=== PATIENT | female | born 1980 | race Caucasian/White ===

== ENCOUNTER 2017-06-24 20:15 | Emergency (ER) | payer OTHER ==
[~2017-06-24] VITALS: Ht 170.2 cm; Wt 95.5 kg
[~2017-06-24 20:15] MED LIST: BUPROPION HCL150 M1 PO; LORTAB 5/500 501 TAB PO; NORCO 325 MG-51 TAB PO; PRENATAL1 TA1 PO; PRILOSEC 20MG20 MG PO; ULTRAM 50MG TAB50 MG PO; ZANTAC 7575 MG PO; ZOFRAN 4MG T4 MG/TAB PO; ZOFRAN ODT4 MG PO
[2017-06-24 20:18] VITALS: BP 154/90; TEMP 98.8
[2017-06-24] MEDS ORDERED: AMOXICILLIN875 MG PO (21:14)
[2017-06-24 21:33] VITALS: PULSE 88
== END 2017-06-24 21:34 | disposition home or self-care (01) ==
LOC: COL.ER 20:15
DX: J06.9 Acute upper respiratory infection, unspecified (principal)

== ENCOUNTER 2017-12-21 10:45 | Emergency (ER) | payer OTHER ==
[~2017-12-21] VITALS: Ht 170.2 cm; Wt 90.9 kg
[~2017-12-21 10:45] MED LIST changes: +AMOXICILLIN875 MG PO
[2017-12-21 10:55] VITALS: BP 124/66; TEMP 97.9
[2017-12-21] MEDS ORDERED: MIRENA52 MG IY (10:57)
[2017-12-21] MEDS ORDERED: ADVIL200 MG PO (12:30)
[2017-12-21 13:23] VITALS: PULSE 72
== END 2017-12-21 13:23 | disposition home or self-care (01) ==
LOC: COL.ER 10:45
DX: S93.401A Sprain of unspecified ligament of right ankle, initial encounter (principal); X50.0XXA Overexertion from strenuous movement or load, initial encounter; Y92.009 Unspecified place in unspecified non-institutional (private) residence as the place of occurrence of the external cause

== ENCOUNTER 2021-04-12 21:04 | Emergency (ER) | payer OTHER ==
[~2021-04-12] VITALS: Ht 170.2 cm; Wt 102.3 kg
[~2021-04-12 21:04] MED LIST changes: +ADVIL200 MG PO; +MIRENA52 MG IY
[2021-04-12 21:45] LABS: BASO # 0.1 (0.0-0.2); BASO % 0.4 % (0.0-2.0); EOS # 0.1 (0.0-0.7); EOS % 0.9 % (0-4.0); GRAN # 10.3 (1.4-6.5); GRAN % 75.2 % (42.2-75.2); HEMATOCRIT 37.5 % (37.0-47.0); LYMPH # 2.3 (1.2-3.4); LYMPH % 16.8 % (20.0-51.0); MEAN CELL VOLUME 86 fl (80.0-100.0); MEAN CORPUSCULAR HEMOGLOBIN 30 pg (27.0-31.0); MEAN CORPUSCULAR HGB CONC 35 g/dl (33.0-37.0); MEAN PLATELET VOLUME 9.1 fl (7.4-10.4); MONO # 0.8 (0.1-0.6); PLATELET COUNT 334 K/mm3 (130-400); RED BLOOD COUNT 4.34 M/mm3 (4.10-5.30); REDCELL DISTRIBUTION WIDTH-CV 12.5 % (11.5-14.5)
[2021-04-12 22:00] LABS: ALBUMIN 4.3 gm/dL (3.5-5.0); BILIRUBIN,TOTAL 0.7 mg/dL (0.0-1.0); C-REACTIVE PROTEIN 1.7 mg/dL (0.0-0.9); CALCIUM 8.9 mg/dL (8.4-10.2); CREATININE, serum 0.72 (0.52-1.25); POTASSIUM 3.4 mmol/L (3.4-5.0); TOTAL PROTEIN 7.7 gm/dL (6.4-8.2)
[2021-04-13 02:15] VITALS: BP 121/72; PULSE 78; TEMP 97.9
== END 2021-04-13 02:15 | disposition home or self-care (01) ==
LOC: COL.ER 21:04
PROVIDERS: Nurse Practitioner
DX: N13.2 Hydronephrosis with renal and ureteral calculous obstruction (principal); Z90.49 Acquired absence of other specified parts of digestive tract
CPT/HCPCS: J2270; J2405; J7030; Q9967

== ENCOUNTER 2021-04-15 08:34 | Observation (INO) | payer OTHER ==
[~2021-04-15] VITALS: Ht 170.2 cm; Wt 100.0 kg
[2021-04-15 09:45] LABS: COLLECTION METHOD CLEAN CATCH
[2021-04-15 09:50] LABS: MUCOUS Present /lpf; PH 7 (5-8); SQUAMOUS EPITHELIAL 0-2 /hpf; URINE APPEARANCE Clear; URINE BACTERIA None Seen /hpf; URINE BILIRUBIN Negative (NEGATIVE); URINE BLOOD 2+ (NEGATIVE); URINE COLOR Straw; URINE GLUCOSE Negative (NEGATIVE); URINE KETONE Negative (NEGATIVE); URINE LEUKOCYTE ESTERASE Negative (NEGATIVE); URINE NITRATE Negative (NEGATIVE); URINE PROTEIN(semi-quant) Negative (NEGATIVE); URINE RBC 0-2 /hpf; URINE UROBILINOGEN Negative (NEGATIVE)
[2021-04-15] MEDS ORDERED: PYRIDIUM 100MG100 MG PO (12:28)
[2021-04-15 13:10] VITALS: BP 121/66; PULSE 58; TEMP 97.1
--- NOTE | 2021-04-15 13:10 | NUR ---
PATIENT IS ADMITED INTO ROOM 322 POST OP KIDNEY STONE. PATIENT IS ORIENTED BUT DROWSY. VSS. DENIES PAIN. PATIENT WAS CATHED IN PACU FOR APPROX 500CC OF URINE. WILL MONITOR OUTPUT. IV FLUIDS INFUSING INTO RIGHT HAND. NO C/O N/V. HEAD TO TOE ASSESSMENT COMPLETE. PACU NURSE WENT TO GO GET THE PATEINT'S MOM FROM THE WAITING ROOM. ORIENTED TO ROOM. CALL LIGHT IN REACH. NO OTHER NEEDS.
[2021-04-15 13:25] VITALS: BP 118/73; PULSE 63
[2021-04-15 13:40] VITALS: BP 117/71; PULSE 69
[2021-04-15 13:55] VITALS: BP 109/73; PULSE 75
[2021-04-15 14:25] VITALS: BP 123/78; PULSE 87
[2021-04-15 14:55] VITALS: BP 114/70; PULSE 67
--- NOTE | 2021-04-15 16:10 | NUR ---
PATIENT MEET DISCHARGE CRITERIA. CALLED SCRIPT TO [facility], THE ONLY PHARMACY OPEN ON THE [place]. GAVE DISCHARGE INSTRUCTIONS, DC'D IV SITE AND DISCUSSED F/U APT. PATIENT IS DRESSED, PACKED, AND DISCHARGED.
== END 2021-04-15 16:10 | disposition home or self-care (01) ==
LOC: COL.ER 08:34 → SURG 10:57
PROVIDERS: ADMIT Family Medicine
DX: N20.1 Calculus of ureter (principal); Z79.899 Other long term (current) drug therapy; Z79.891 Long term (current) use of opiate analgesic
CPT/HCPCS: C1769; J0690; J1100; J1885; J2405; J2704; J7120